=== PATIENT | male | born 2000 | race Two or more races ===

== ENCOUNTER 2019-05-18 10:20 | Emergency (ER) | payer OTHER ==
[2019-05-18 11:21] VITALS: BP 126/83
--- NOTE | 2019-05-18 12:11 | UC ---
Complaint Male HPI - HPI Summary HPI Summary: 4 DAYS OF INTERMITTENT BURNING SENSATION TO LEFT TESTICULAR REGION. FEELS A FULLNESS IN THE SCROTAL AREA. NO URINARY SYMPTOMS OR PENILE DISCHARGE. DENIES ANY HISTORY OF SEXUAL ACTIVITY. NO TRAUMA TO THE AREA. NO FEVER. NO ABDOMINAL PAIN. - History of Current Complaint Chief Complaint: UCGU Stated Complaint: PERSONAL Time Seen by Provider: 05/18/19 11:22 Hx Obtained From: Patient Onset/Duration: Sudden Onset, Lasting Days, Still Present Timing: Intermittent Severity Initially: Moderate Severity Currently: Moderate Pain Intensity: 4 Pain Scale Used: 0-10 Numeric Location: Scrotum - LEFT Character: Burning Aggravating Factor(s): Nothing Alleviating Factor(s): Nothing Associated Signs And Symptoms: Positive: Negative - Allergies/Home Medications Allergies/Adverse Reactions: Allergies Allergy/AdvReac Type Severity Reaction Status Date / Time No Known Allergies Allergy Verified 05/18/19 11:21 Home Medications: Home Medications NK [No Home Medications Reported] 05/18/19 [History Confirmed 05/18/19] PMH/Surg Hx/FS Hx/Imm Hx Respiratory History: Asthma - Surgical History Surgical History: None - Social History Alcohol Use: None Substance Use Type: None Smoking Status (MU): Never Smoked Tobacco Review of Systems All Other Systems Reviewed And Are Negative: Yes Constitutional: Positive: Negative Skin: Positive: Negative Respiratory: Positive: Negative Cardiovascular: Positive: Negative Gastrointestinal: Positive: Negative Genitourinary: Positive: Other - LEFT TESTICULAR FULLNESS/BURNING SENSATION. Negative: Dysuria, Frequency, Urgency, Vaginal/Penile Discharge, Ulceration/ Lesion Physical Exam Triage Information Reviewed: Yes Appearance: Well-Appearing, No Pain Distress, Well-Nourished Vital Signs: Initial Vital Signs Temp 99.3 F 05/18/19 11:18 Pulse 103 05/18/19 11:18 Resp 20 05/18/19 11:18 BP 126/83 05/18/19 11:18 Pulse Ox 99 05/18/19 11:18 Laboratory Tests 05/18/19 11:37 POC Urine Color Yellow POC Urine Clarity Clear POC Urine pH 6.0 POC Ur Specif [place] 1.025 POC Urine Protein 1+ A POC Ur Glucose (UA) Negative POC Urine Ketones Negative POC Urine Blood Negative POC Urine Nitrite Negative POC Urine Bilirubin Negative POC Urine Urobilinogen 0.2 POC U Leukocyte Esteras Negative Vital Signs Reviewed: Yes Eyes: Positive: Conjunctiva Clear ENT: Positive: Hearing grossly normal Neck: Positive: Supple Respiratory: Positive: No respiratory distress, No accessory muscle use Cardiovascular: Positive: Pulses Normal Abdomen Description: Positive: Nontender, Soft Male Genital Exam: Positive: Normal Genitalia, Other - FULLNESS TO LEFT SPERMATIC CORD. NO TESTICULAR LESIONS. NO TORSION ON EXAM. NO INGUINAL LAD. Negative: Inguinal Tenderness, Scrotum Tenderness (L), Testicular Tenderness (L) , Urethral Discharge Musculoskeletal: Positive: No Edema Neurological: Positive: Alert Psychological: Positive: Normal Response To Family, Age Appropriate Behavior Skin: Negative: Rashes Diagnostics - Radiology TESTICULAR US Radiology Interpretation Completed By: Radiologist Summary of Radiographic Findings: No intratesticular masses are noted. Left- sided varicocele. Complaint Male Course/Dx - Course Course Of Treatment: FULLNESS TO REGION SURROUNDING LEFT SPERMATIC CORD PALPATED ON PHYSICAL EXAM. URINE DIP WITH 1+ PROTEIN BUT OTHERWISE UNREMARKABLE. ULTRASOUND SHOWS LEFT SIDED VARICOCELE. FOLLOW-UP WITH UROLOGY. ELDON FRANZ RN PRESENT FOR TESTICULAR EXAM. - Differential Dx/Diagnosis Provider Diagnosis: Left varicocele Discharge ED - Sign-Out/Discharge Documenting (check all that apply): Patient Departure All imaging exams completed and their final reports reviewed: Yes - Discharge Plan Condition: Stable Disposition: HOME Patient Education Materials: Varicocele (ED) Referrals: Jomar Lynn MD [Medical Doctor] - 2 Weeks Yinka Avila MD [Primary Care Provider] - If Needed Additional Instructions: LEFT-SIDED VARICOCELE SEEN ON ULTRASOUND TODAY. YOU ALSO HAD A SMALL AMOUNT OF PROTEIN IN YOUR URINE. FOLLOW-UP WITH A UROLOGIST TO DISCUSS TREATMENT OPTIONS AND FOR A REPEAT URINE TEST. IBUPROFEN NEEDED FOR DISCOMFORT. LAYING DOWN MAY ALSO HELP RELIEVE THE PRESSURE. - Billing Disposition and Condition Condition: STABLE Disposition: Home
== END 2019-05-18 12:40 | disposition home or self-care (01) ==
LOC: UCEAST 10:20
DX: I86.1 Scrotal varices (principal); J45.909 Unspecified asthma, uncomplicated
CPT/HCPCS: 76870; 81003; 99211; G0463